=== PATIENT | female | born 1960 | race Two or more races ===

== ENCOUNTER 2016-04-10 19:22 | Emergency (ER) | payer MEDICAID ==
--- NOTE | 2016-04-10 20:06 | ED Physician Chart ---
Chief Complaint/HPI - Patient Information Date Seen:: 04/10/16 Time Seen:: 19:25 Chief Complaint:: abdominal pain History of Present Illness:: 56-year-old female complains of acute, intermittent, severe at worst, 8 out of 10, aching, cramping, radiating to the back, right upper quadrant pain that started this morning. Has some associated nausea but no vomiting. Allergies:: Allergies Allergy/AdvReac Type Severity Reaction Status Date / Time No Known Allergies Allergy Verified 04/10/16 19:42 Vitals:: Vital Signs - 8 hr 04/10/16 19:30 Temp 97.8 F HR 69 RR 20 BP 132/79 O2 Sat % 97 Historian:: Patient Review:: Nurse's Note Reviewed Review of Systems - Review of Systems Other: Complete system review otherwise unremarkable except as noted in HPI. Past Medical History - Past Medical History Past Medical History: DM, CHF Family History: None Social History: Non Smoker, No Alcohol, No Drug Use, Other (lives with family) Surgical History: other (tubal ligation) Psychiatricy History: None Medication: Reviewed Family Medical History - Family Member Mother History Unknown: Yes Ethnicity: Living Status: Hx Family Cancer: Yes (OVARIAN) Hx Family Coronary Artery Disease: No Hx Family Congestive Heart Failure: No Hx Family Hypertension: Yes Hx Family Stroke: No Hx Family Diabetes: No Hx Family Seizures: No Hx Family Dementia: No Hx Family AIDS: No Hx Family HIV: No Hx Family COPD: No Hx Family Hepatitis: No Hx Family Psychiatric Problems: No Hx Family Tuberculosis: No Father Ethnicity: Living Status: Hx Family Cancer: No Hx Family Coronary Artery Disease: No Hx Family Congestive Heart Failure: No Hx Family Hypertension: Yes Hx Family Stroke: Yes Hx Family Diabetes: No Hx Family Seizures: No Hx Family Dementia: No Hx Family AIDS: No Hx Family HIV: No Hx Family COPD: No Hx Family Hepatitis: No Hx Family Psychiatric Problems: No Hx Family Tuberculosis: No Physical Exam - Physical Examination Other:: INITIAL VITAL SIGNS: Reviewed by me GENERAL: Alert and interactive. No acute distress HEAD: Head is normocephalic and atraumatic EYES: EOMI. . No scleral icterus. No conjunctival injection ENT: Moist mucous membranes. NECK: Supple. No masses. Full range of motion RESPIRATORY: No tachypnea. Clear breath sounds bilaterally. No wheezing, rales, or rhonchi CV: Regular rate and rhythm. No murmurs, rubs, or gallops ABDOMEN: Soft, non-distended, right upper quadrant tenderness to palpation. No rebound. No masses. EXTREMITIES: No deformity. No cyanosis. No edema. SKIN: Warm and dry. No obvious rashes. NEUROLOGIC: Alert and oriented. Face is symmetric. Speech is normal. Moves all extremities equally. Motor and sensory distally intact. Labs/Radiology/EKG Results - Radiology Results Results: CT abdomen and pelvis without contrast preliminary report per radiology NAD ED Septic Shock - . Is Septic Shock (SBP<90, OR Lactate>4 mmol\L) present?: No - <6hrs of presentation: Vital Signs: Vital Signs - 8 hr 04/10/16 19:30 Temp 97.8 F HR 69 RR 20 BP 132/79 O2 Sat % 97 Reassessment (Disposition) - Reassessment Reassessment:: The patient's blood pressure was elevated (>120/80) but appears stable without evidence of hypertensive emergency or urgency. The patient was counseled about the risks hypertension urged to pursue outpatient monitoring and therapy within a week with her primary care physician. Labs and CT are essentially unremarkable. Patient likely experiencing biliary colic. Patient's symptoms totally improved after receiving IV fluids, IV Toradol, IV Compazine and IV Zofran. We'll provide prescription for Zofran and ibuprofen. Follow up PCP 1-2 days. Gave return to ER precautions. Patient understands and agrees with the plan. Reassessment Condition:: Improved - Diagnosis Diagnosis:: Elevated blood pressure without the diagnosis of hypertension - Aftercare/Follow up Instructions Aftercare/Follow-Up Instructions:: Counseled pt regarding lab results/diagnosis & need follow up, Refer to Discharge Instructions Medication Prescribed:: Zofran Ibuprofen - Patient Disposition Discharge/Transfer:: Home Time:: 21:04 Condition at Disposition:: Improved ED Discharge Plan - Patient Disposition Admit/Discharge/Transfer: PT DISCHARGED HOME Condition at Disposition: Improved Instructions: Biliary Colic
[2016-04-10] MEDS ORDERED: Prochlorperazine 5 mg/mL 2mL Vial IVP STA (20:07)
[2016-04-10] MEDS ORDERED: Sodium Chloride 0.9% 1,000 ML IV ONE (20:17)
[2016-04-10] MEDS ORDERED: Prochlorperazine 5 mg/mL 2mL Vial ONE (20:20)
[2016-04-10 20:23] LABS: % BASOPHILS 1.3 % (0.0-2.0); % EOSINOPHILS 2.8 % (0.0-5.0); % LYMPHOCYTES 32.9 % (20.0-50.0); % MONOCYTES 9.5 % (2.0-10.0); % NEUTROPHILS 53.5 % (40.0-80.0); HEMOGLOBIN 13.6 gm/dL (11.7-15.5); MEAN CELL VOLUME 90.5 fl (81-100); MEAN CORPUSCULAR HEMOGLOBIN 30.8 pg (27.0-31.0); MEAN PLATELET VOLUME 8.5 fl; NEUTROPHILE ABSOLUTE 3.1 Th/cmm (1.8-8.0); PLATELET COUNT 186 Th/cmm (150-400); RED BLOOD COUNT 4.42 Mil/cmm (3.80-5.10); WHITE BLOOD COUNT 5.9 Th/cmm (4.8-10.8)
[2016-04-10 20:33] LABS: INR 0.95 (0.5-1.4); PROTHROMBIN TIME (TEST) 9.4 SECONDS (9.5-11.5)
[2016-04-10 20:36] LABS: ALB/GLOB RATIO 1.4 (1.0-1.8); ALKALINE PHOSPHATASE 83 U/L (34-104); ANION GAP 10.6 (7.0-16.0); BILIRUBIN,TOTAL 0.4 mg/dL (0.3-1.0); BUN - UREA NITROGEN 15 mg/dL (7-25); BUN/CREATININE RATIO 16.7; CALCIUM SERUM 9.1 mg/dL (8.6-10.3); CARBON DIOXIDE 27.3 mEq/L (21.0-31.0); CHLORIDE 102 mEq/L (98-107); CREATININE - SERUM 0.9 mg/dL (0.6-1.2); GLUCOSE 198 mg/dL (70-105); POTASSIUM SERUM 3.9 mEq/L (3.5-5.1); SGOT 16 U/L (13-39); SGPT/ALT 17 U/L (7-52); SODIUM SERUM 136 mEq/L (136-145)
[2016-04-10 20:38] LABS: URINE BILIRUBIN NEGATIVE (NEGATIVE); URINE BLOOD NEGATIVE (NEGATIVE); URINE COLOR YELLOW; URINE GLUCOSE (UA) NEGATIVE (NEGATIVE); URINE KETONE NEGATIVE (NEGATIVE); URINE PH 5.5; URINE PROTEIN NEGATIVE (NEGATIVE); URINE UROBILINOGEN 0.2 E.U./dL (0.2 - 1.0)
[2016-04-10 20:39] LABS: URINE BACTERIA OCCASIONAL /hpf (NONE SEEN); URINE EPITHELIAL CELLS RARE /lpf (FEW); URINE RBC NONE SEEN /hpf (0-5); URINE WBC 0-2 /hpf (0-5)
--- NOTE | 2016-04-11 10:15 | Diagnostic Imaging Report ---
CT scan of the abdomen and pelvis without intravenous contrast History: Pain Total DLP equals 678 CTDI equals 13.5 Axial sections were obtained from the xiphoid process down to the pubic symphysis. Limited sections of the lower chest demonstrated generous overall heart size. The liver demonstrates a normal size and contour. No focal lesions are seen. The spleen appears normal. No abnormalities are seen in the region of the pancreas. The kidneys appear normal bilaterally. There is an approximate 1.4 cm nodular density involving the left adrenal gland. Density measurements are consistent with a benign etiology. A follow-up CT scan in 4 months would provide confirmation of stability. The exam of the pelvis demonstrates preservation of normal fat planes. No abnormal soft tissue masses. No abnormal fluid collections. Impression: 1. No definite acute abnormalities 2. 1.4 cm left adrenal lesion with density measurements consistent with a benign etiology. A follow-up CT scan in 4 months would provide confirmation of stability 3. Generous heart size
== END 2016-04-10 21:55 | disposition home or self-care (01) ==
LOC: ER 19:22
DX: R03.0 Elevated blood-pressure reading, without diagnosis of hypertension (principal); I50.9 Heart failure, unspecified; E11.9 Type 2 diabetes mellitus without complications; Z98.51 Tubal ligation status
CPT/HCPCS: 99285; 96374; 96375; 74176; 36415; 83605; 84443; 85025; 85610; 85730; 81001; 82150; 83036; 83690; 80053; 87040 ×2; J1885; J2405; J0780; J7030